=== PATIENT | female | born 1960 | race Caucasian/White ===

== ENCOUNTER 2017-03-01 12:41 | Day surgery (SDC) | payer OTHER ==
[2017-03-01 12:59] VITALS: RESP 16; O2SAT 97
[2017-03-01] MEDS ORDERED: TRIAMCINOLONE ACETONIDE 40 MG/ML SUS ONE (13:32)
[2017-03-01 13:59] VITALS: BP 127/78; PULSE 64; TEMP 98.6
== END 2017-03-01 14:27 | disposition home or self-care (01) | DRG 552 ==
LOC: SURG 12:41
PROVIDERS: ATTEND Nurse Anesthetist, Certified Registered
DX: M48.06 Spinal stenosis, lumbar region (principal); M48.07 Spinal stenosis, lumbosacral region
CPT/HCPCS: J3300

== ENCOUNTER 2017-04-12 11:49 | Day surgery (SDC) | payer OTHER ==
[2017-04-12 12:04] VITALS: RESP 18; TEMP 97.4
[2017-04-12] MEDS ORDERED: TRIAMCINOLONE ACETONIDE 40 MG/ML SUS ONE (12:07)
[2017-04-12] MEDS ORDERED: BUPIVACAINE HCL 0.5% MPF 10 ML SOL ONE (12:07)
[2017-04-12] MEDS ORDERED: LIDOCAINE HCL 1% MPF SOL ONE (12:07)
[2017-04-12 12:56] VITALS: BP 97/76; PULSE 67; O2SAT 96
== END 2017-04-12 13:29 | disposition home or self-care (01) | DRG 554 ==
LOC: SURG 11:49
PROVIDERS: ATTEND Nurse Anesthetist, Certified Registered
DX: M12.88 Other specific arthropathies, not elsewhere classified, other specified site (principal)
CPT/HCPCS: J2001; J3300

== ENCOUNTER 2017-05-24 13:33 | Day surgery (SDC) | payer OTHER ==
[2017-05-24] MEDS ORDERED: TRIAMCINOLONE ACETONIDE 40 MG/ML SUS ONE (13:47)
[2017-05-24 13:51] VITALS: TEMP 97.8
[2017-05-24 14:15] VITALS: BP 137/84; PULSE 67; RESP 20; O2SAT 92
== END 2017-05-24 14:18 | disposition home or self-care (01) | DRG 556 ==
LOC: SURG 13:33
PROVIDERS: ATTEND Nurse Anesthetist, Certified Registered
DX: M79.1 Myalgia (principal)
CPT/HCPCS: J3300

== ENCOUNTER 2017-06-07 12:27 | Day surgery (SDC) | payer OTHER ==
[2017-06-07] MEDS ORDERED: TRIAMCINOLONE ACETONIDE 40 MG/ML SUS ONE (13:37)
[2017-06-07 14:06] VITALS: BP 130/85; PULSE 67; RESP 16; TEMP 98.6; O2SAT 97
== END 2017-06-07 14:15 | disposition home or self-care (01) | DRG 552 ==
LOC: SURG 12:27
PROVIDERS: ATTEND Nurse Anesthetist, Certified Registered
DX: M48.06 Spinal stenosis, lumbar region (principal)
CPT/HCPCS: J3300

== ENCOUNTER 2017-07-19 07:23 | Day surgery (SDC) | payer OTHER ==
[2017-07-19] MEDS ORDERED: BUPIVACAINE HCL 0.5% MPF 10 ML SOL ONE (07:39)
[2017-07-19 07:46] VITALS: RESP 16
[2017-07-19] MEDS: TRIAMCINOLONE ACETONIDE 40 MG/ML SUS ONE ×2 (07:59→08:01)
[2017-07-19 08:10] VITALS: BP 138/77; PULSE 74; TEMP 97.8; O2SAT 100
== END 2017-07-19 08:15 | disposition home or self-care (01) | DRG 556 ==
LOC: SURG 07:23
PROVIDERS: ATTEND Nurse Anesthetist, Certified Registered
DX: M79.1 Myalgia (principal)
CPT/HCPCS: J3300

== ENCOUNTER 2018-02-01 14:05 | Day surgery (SDC) | payer OTHER ==
[2018-02-01] MEDS ORDERED: BUPIVACAINE HCL 0.25% MPF 10 ML SOL INFIL ONE (14:48)
[2018-02-01] MEDS: DEXAMETHASONE SOD PHOS PF 10 MG/ML SOL IJ ONE ×3 (14:54→15:09)
[2018-02-01 15:23] VITALS: RESP 20; TEMP 98.3; O2SAT 96
[2018-02-01 15:31] VITALS: BP 113/84; PULSE 73
== END 2018-02-01 15:40 | disposition home or self-care (01) | DRG 552 ==
LOC: SURG 14:05
PROVIDERS: ATTEND Nurse Anesthetist, Certified Registered
DX: M54.5 Low back pain (principal); M48.07 Spinal stenosis, lumbosacral region; M54.17 Radiculopathy, lumbosacral region
CPT/HCPCS: J1100

== ENCOUNTER 2018-03-15 12:05 | Day surgery (SDC) | payer OTHER ==
[2018-03-15] MEDS ORDERED: DIAZEPAM 5 MG TAB ONE (12:22)
[2018-03-15] MEDS ORDERED: BUPIVACAINE HCL 0.25% MPF 10 ML SOL INFIL ONE (12:46)
[2018-03-15] MEDS: TRIAMCINOLONE ACETONIDE 40 MG/ML SUS ONE ×3 (12:57→13:05)
[2018-03-15 13:12] VITALS: BP 119/67; PULSE 79; RESP 18; TEMP 98.8; O2SAT 97
== END 2018-03-15 14:13 | disposition home or self-care (01) | DRG 554 ==
LOC: SURG 12:05
PROVIDERS: ATTEND Nurse Anesthetist, Certified Registered
DX: M12.88 Other specific arthropathies, not elsewhere classified, other specified site (principal)
CPT/HCPCS: A9270-GY; J3300

== ENCOUNTER 2018-05-29 08:23 | Day surgery (SDC) | payer OTHER ==
[2018-05-29 09:03] VITALS: TEMP 97.4
[2018-05-29] MEDS ORDERED: LIDOCAINE HCL 2% MPF 10 ML SOL ONE (09:31)
[2018-05-29] MEDS ORDERED: BUPIVACAINE HCL 0.25% MPF 30 ML SOL INFIL ONE (09:31)
[2018-05-29] MEDS: MIDAZOLAM 2 MG/2 ML SOL ONE ×4 (09:40→10:22)
[2018-05-29] MEDS: SODIUM CHLORIDE IV ONE ×2 (09:41→10:06)
[2018-05-29] MEDS: FLUSH IV ONE ×2 (09:41→10:06)
[2018-05-29] MEDS: FENTANYL 100MCG/2ML SOL ONE ×2 (09:41→09:49)
[2018-05-29] MEDS ORDERED: SODIUM CHLORIDE IV ONE (09:49)
[2018-05-29] MEDS ORDERED: FLUSH IV ONE (09:49)
[2018-05-29] MEDS: TRIAMCINOLONE ACETONIDE 40 MG/ML SUS ONE ×4 (09:53→10:33)
[2018-05-29 10:49] VITALS: BP 128/81; PULSE 70; RESP 18; O2SAT 94
== END 2018-05-29 11:24 | disposition home or self-care (01) | DRG 554 ==
LOC: SURG 08:23
PROVIDERS: ATTEND Nurse Anesthetist, Certified Registered
DX: M12.88 Other specific arthropathies, not elsewhere classified, other specified site (principal)
CPT/HCPCS: J2250; J3010; J3300

== ENCOUNTER 2018-08-29 09:00 | Day surgery (SDC) | payer OTHER ==
[2018-08-29] MEDS ORDERED: DIAZEPAM 5 MG TAB ONE (09:19)
[2018-08-29] MEDS ORDERED: BUPIVACAINE HCL 0.5% MPF 10 ML SOL ONE (09:46)
[2018-08-29] MEDS ORDERED: LIDOCAINE HCL 1% MPF 30 SOL ONE (09:46)
[2018-08-29 10:46] VITALS: RESP 20; TEMP 98; O2SAT 95
[2018-08-29 11:02] VITALS: BP 124/85; PULSE 67
== END 2018-08-29 11:05 | disposition home or self-care (01) | DRG 554 ==
LOC: SURG 09:00
PROVIDERS: ATTEND Nurse Anesthetist, Certified Registered
DX: M12.88 Other specific arthropathies, not elsewhere classified, other specified site (principal)
CPT/HCPCS: A9270-GY; J2001

== ENCOUNTER 2018-09-13 09:24 | Day surgery (SDC) | payer OTHER ==
[2018-09-13] MEDS ORDERED: DIAZEPAM 5 MG TAB ONE (09:45)
[2018-09-13] MEDS ORDERED: LIDOCAINE HCL 1% MPF 30 SOL ONE (10:04)
[2018-09-13] MEDS ORDERED: LIDOCAINE HCL 2% MPF 10 ML SOL ONE (10:04)
[2018-09-13] MEDS ORDERED: SODIUM CHLORIDE 0.9% FLUSH 10 ML SOL IV ONE (10:15)
[2018-09-13 11:09] VITALS: BP 127/78; PULSE 67; RESP 20; TEMP 97.3; O2SAT 95
== END 2018-09-13 11:40 | disposition home or self-care (01) | DRG 554 ==
LOC: SURG 09:24
PROVIDERS: ATTEND Nurse Anesthetist, Certified Registered
DX: M12.88 Other specific arthropathies, not elsewhere classified, other specified site (principal)
CPT/HCPCS: A9270-GY; J2001

== ENCOUNTER 2018-10-10 12:17 | Day surgery (SDC) | payer OTHER ==
[2018-10-10] MEDS ORDERED: BUPIVACAINE HCL 0.25% MPF 30 ML SOL INFIL ONE (13:07)
[2018-10-10] MEDS ORDERED: LIDOCAINE HCL 1% MPF 30 SOL ONE (13:07)
[2018-10-10] MEDS ORDERED: LIDOCAINE HCL 2% MPF 10 ML SOL ONE (13:07)
[2018-10-10] MEDS: MIDAZOLAM 2 MG/2 ML SOL ONE ×2 (13:20→13:51)
[2018-10-10] MEDS: FENTANYL 100MCG/2ML SOL ONE ×3 (13:21→14:22)
[2018-10-10] MEDS: TRIAMCINOLONE ACETONIDE 40 MG/ML SUS ONE ×2 (14:21→14:54)
[2018-10-10 15:08] VITALS: BP 139/91; PULSE 70; RESP 24; TEMP 97.5; O2SAT 94
== END 2018-10-10 15:45 | disposition home or self-care (01) | DRG 554 ==
LOC: SURG 12:17
PROVIDERS: ATTEND Nurse Anesthetist, Certified Registered
DX: M12.9 Arthropathy, unspecified (principal)
CPT/HCPCS: J2250; J3010; J2001; J3300

== ENCOUNTER 2018-11-03 08:44 | Outpatient (CLI) | payer OTHER ==
[2018-10-10 15:08] VITALS: O2SAT 94
== END 2018-11-03 08:45 | disposition home or self-care (01) | DRG 556 ==
LOC: CONVCARE 08:44
PROVIDERS: ATTEND Orthopaedic Surgery
DX: M25.562 Pain in left knee (principal); M25.561 Pain in right knee
CPT/HCPCS: 73564

== ENCOUNTER 2018-12-15 15:34 | Emergency (ER) | payer OTHER ==
[2018-12-15 16:11] VITALS: RESP 20; TEMP 98.3
[2018-12-15] MEDS ORDERED: ALBUTEROL/IPRATROPIUM 1 VIAL SOL INH PRN (17:36)
[2018-12-15] MEDS ORDERED: ALBUTEROL/IPRATROPIUM 1 VIAL SOL ONE (17:47)
[2018-12-15 19:27] VITALS: BP 116/87; PULSE 76; O2SAT 93
== END 2018-12-15 18:21 | disposition home or self-care (01) | DRG 202 ==
LOC: ED 15:34
DX: J20.9 Acute bronchitis, unspecified (principal); J45.901 Unspecified asthma with (acute) exacerbation; J01.90 Acute sinusitis, unspecified; B96.89 Other specified bacterial agents as the cause of diseases classified elsewhere
CPT/HCPCS: 71046; 99283

== ENCOUNTER 2019-01-30 17:11 | Emergency (ER) | payer OTHER ==
[2019-01-30] MEDS ORDERED: HYDROMORPHONE 1 MG/ML SYRINGE IV ONE (18:04)
[2019-01-30] MEDS ORDERED: HYDROMORPHONE 1 MG/ML SYRINGE ONE (18:04)
[2019-01-30] MEDS ORDERED: SODIUM CHLORIDE 0.9% FLUSH 10 ML SOL IV PRN (18:10)
[2019-01-30 18:27] LABS: BASOPHILS % (AUTO) 1 % (0-3); EOSINOPHILS % (AUTO) 0 % (0-9); HEMATOCRIT 43 % (35-47); HEMOGLOBIN 13.9 gm/dl (12.0-15.5); LYMPHOCYTES % (AUTO) 15.3 % (10-50); MEAN CORPUSCULAR HEMOGLOBIN 33.5 pg (27.0-32.0); MEAN CORPUSCULAR HGB CONC 32.4 gm/dl (32.0-36.0); MONOCYTES % (AUTO) 5.4 % (0-12); NEUTROPHILS % (AUTO) 78.5 % (37-80)
[2019-01-30 18:29] LABS: MEAN CORPUSCULAR VOLUME 103 fL (81-99)
[2019-01-30] MEDS ORDERED: LORAZEPAM 2 MG/ML SOL IV ONE (18:31)
[2019-01-30 18:34] LABS: INR 0.98 (0.86-1.12)
[2019-01-30] MEDS ORDERED: LORAZEPAM 2 MG/ML SOL ONE (18:34)
[2019-01-30 18:39] LABS: ALBUMIN 3.8 gm/dl (3.4-5.0); ALCOHOL 0.041 gm/dl (0.000-0.08); BILIRUBIN,TOTAL 0.3 mg/dl (0.2-1.0); CALCIUM 8.6 mg/dl (8.5-10.1); CARBON DIOXIDE 19.5 mEq/L (21-32); CREATININE 0.87 mg/dl (0.60-1.00); POTASSIUM 3.8 mMol/L (3.5-5.1); TOTAL PROTEIN 6.8 gm/dl (6.4-8.2)
[2019-01-30 19:56] VITALS: BP 146/109; PULSE 90; RESP 16; TEMP 98.5; O2SAT 91
== END 2019-01-30 19:52 | disposition short-term general hospital (02) | DRG 563 ==
LOC: ED 17:11
DX: S82.852A Displaced trimalleolar fracture of left lower leg, initial encounter for closed fracture (principal); W19.XXXA Unspecified fall, initial encounter; I10 Essential (primary) hypertension; E03.9 Hypothyroidism, unspecified; Y90.2 Blood alcohol level of 40-59 mg/100 ml; R60.0 Localized edema
CPT/HCPCS: 29505; 36415; 73610; 73630; 80053; 80307; 85025; 85610; 96374; 96375; 99212; 99285; G0390; J2060; J1170

== ENCOUNTER 2019-02-08 13:56 | Outpatient (CLI) | payer OTHER ==
[2019-01-30 19:56] VITALS: O2SAT 91
== END 2019-02-08 13:57 | disposition home or self-care (01) | DRG 561 ==
LOC: CONVCARE 13:56
PROVIDERS: ATTEND Orthopaedic Surgery
DX: S82.852D Displaced trimalleolar fracture of left lower leg, subsequent encounter for closed fracture with routine healing (principal); R23.8 Other skin changes
CPT/HCPCS: 73610

== ENCOUNTER 2019-03-12 12:51 | Outpatient (CLI) | payer OTHER ==
[2019-03-08 09:09] VITALS: O2SAT 95
== END 2019-03-12 12:52 | disposition home or self-care (01) | DRG 561 ==
LOC: CONVCARE 12:51
PROVIDERS: ATTEND Orthopaedic Surgery
DX: S82.852D Displaced trimalleolar fracture of left lower leg, subsequent encounter for closed fracture with routine healing (principal)
CPT/HCPCS: 73610

== ENCOUNTER 2019-03-26 07:44 | Day surgery (SDC) | payer OTHER ==
[2019-03-26] MEDS ORDERED: VANCOMYCIN HYDROCHLORIDE 500 MG PDS IV ONE ×2 (08:09→08:11)
[2019-03-26] MEDS ORDERED: TOBRAMYCIN SULFATE 1.2 GM ONE (08:10)
[2019-03-26] MEDS ORDERED: FENTANYL 100MCG/2ML SOL ONE (08:47)
[2019-03-26] MEDS ORDERED: MIDAZOLAM 2 MG/2 ML SOL ONE (08:47)
[2019-03-26] MEDS ORDERED: BUPIVACAINE/EPI 0.5% 10 ML SOL INFIL ONE (08:50)
[2019-03-26 09:32] VITALS: RESP 16
[2019-03-26] MEDS ORDERED: PROPOFOL 500 MG/50 ML EMU IV ONE (09:37)
[2019-03-26] MEDS ORDERED: CEFAZOLIN SODIUM 1 GM PDS ONE (09:54)
[2019-03-26] MEDS ORDERED: TOBRAMYCIN SULFATE 1.2 GM VIAL IR ONE (10:20)
[2019-03-26 11:33] VITALS: BP 135/83; PULSE 78; TEMP 98.1; O2SAT 91
== END 2019-03-26 11:58 | disposition home or self-care (01) | DRG 950 ==
LOC: SURG 07:44
PROVIDERS: ATTEND Orthopaedic Surgery
DX: T81.89XD Other complications of procedures, not elsewhere classified, subsequent encounter (principal)
CPT/HCPCS: 36415; 80307; J0690; J2250; J3010; J3370; J2704; J3260

== ENCOUNTER 2019-04-21 13:46 | Emergency (ER) | payer OTHER ==
[2019-04-21 14:10] VITALS: BP 133/84; PULSE 100; RESP 20; TEMP 98.3; O2SAT 96
== END 2019-04-21 15:05 | disposition home or self-care (01) | DRG 603 ==
LOC: ED 13:46
DX: L03.313 Cellulitis of chest wall (principal); T81.49XA Infection following a procedure, other surgical site, initial encounter; S21.002A Unspecified open wound of left breast, initial encounter
CPT/HCPCS: 99282

== ENCOUNTER 2019-04-30 10:34 | Outpatient (CLI) | payer OTHER ==
[2019-04-26 09:01] VITALS: O2SAT 94
== END 2019-04-30 10:35 | disposition home or self-care (01) | DRG 951 ==
LOC: CONVCARE 10:34
PROVIDERS: ATTEND Orthopaedic Surgery
DX: Z48.00 Encounter for change or removal of nonsurgical wound dressing (principal); L97.829 Non-pressure chronic ulcer of other part of left lower leg with unspecified severity; L98.499 Non-pressure chronic ulcer of skin of other sites with unspecified severity; Z47.89 Encounter for other orthopedic aftercare; Z98.890 Other specified postprocedural states
CPT/HCPCS: 73610; 99211; A6232

== ENCOUNTER 2019-06-04 13:49 | Outpatient (CLI) | payer OTHER ==
[2019-05-28 15:09] VITALS: O2SAT 94
== END 2019-06-04 13:50 | disposition home or self-care (01) | DRG 950 ==
LOC: CONVCARE 13:49
PROVIDERS: ATTEND Orthopaedic Surgery
DX: T81.31XD Disruption of external operation (surgical) wound, not elsewhere classified, subsequent encounter (principal)
CPT/HCPCS: 73610; 99211

== ENCOUNTER 2019-06-25 11:35 | Outpatient (CLI) | payer OTHER | END 2019-06-25 11:36 | disposition home or self-care (01) | LOC: CONVCARE 11:35 ==

== ENCOUNTER 2019-07-09 07:47 | Day surgery (SDC) | payer OTHER ==
[2019-07-09] MEDS ORDERED: ONDANSETRON HCL 4 MG/2 ML SOL ONE (08:12)
[2019-07-09] MEDS ORDERED: PROPOFOL 500 MG/50 ML EMU IV ONE (08:12)
[2019-07-09] MEDS ORDERED: MIDAZOLAM 2 MG/2 ML SOL ONE ×2 (08:12→09:21)
[2019-07-09] MEDS ORDERED: LIDOCAINE HCL 1% MPF 30 SOL ONE (08:13)
[2019-07-09] MEDS ORDERED: FENTANYL 100MCG/2ML SOL ONE (08:13)
[2019-07-09] MEDS ORDERED: BUPIVACAINE HCL 0.25% MPF 30 ML SOL INFIL ONE (09:14)
[2019-07-09] MEDS ORDERED: CEFAZOLIN SODIUM 1 GM PDS ONE (09:16)
[2019-07-09] MEDS ORDERED: KETOROLAC TROMETHAMINE 30 MG/ML SOL ONE (10:41)
[2019-07-09 11:04] VITALS: RESP 18
[2019-07-09 11:27] VITALS: TEMP 97.6
[2019-07-09 12:28] VITALS: BP 108/71; PULSE 65; O2SAT 99
== END 2019-07-09 12:28 | disposition home or self-care (01) | DRG 561 ==
LOC: SURG 07:47
PROVIDERS: ATTEND Orthopaedic Surgery
DX: S82.51XG Displaced fracture of medial malleolus of right tibia, subsequent encounter for closed fracture with delayed healing (principal); T81.89XD Other complications of procedures, not elsewhere classified, subsequent encounter
CPT/HCPCS: 76000; J0690; J1885; J2250; J2405; J3010; A6402; A6446; J2001; J2704